=== PATIENT | female | born 1985 | race Caucasian/White ===

== ENCOUNTER 2016-12-01 07:07 | Emergency (ER) | payer BC, OTHER ==
[~2016-12-01] VITALS: Ht 165.1 cm; Wt 63.5 kg
[2016-12-01] MEDS ORDERED: ALPR1TAB2 PO (07:22)
[2016-12-01] MEDS ORDERED: GABA-532 PO (07:22)
[2016-12-01] MEDS ORDERED: CITA20TA19 PO (07:22)
[2016-12-01] MEDS ORDERED: QUET50TA PO (07:22)
--- NOTE | 2016-12-01 07:29 | NUR ---
DR THORNTON AT THE [facility] FOR EVAL AND EXAM.
[2016-12-01 08:02] LABS: CREATININE 0.6 mg/dL (0.6-1.3); EOSINOPHILS # (AUTO) 0.1 K/uL (0.0-0.7); MONOCYTES # (AUTO) 0.4 K/UL (0.1-1.30); POTASSIUM 4.3 mmol/L (3.5-5.1)
[2016-12-01 08:05] LABS: BASOPHILS % (AUTO) 0.4 % (0.0-2.0); EOSINOPHILS % (AUTO) 2.2 % (0.0-7.0); HEMATOCRIT 33.9 % (37-47); HEMOGLOBIN 11.5 G/DL (12.0-16.0); LYMPHOCYTES % (AUTO) 42.4 % (20.5-51.5); MEAN CORPUSCULAR HEMOGLOBIN 27.7 UUG (27.0-31.0); MEAN CORPUSCULAR HGB CONC 34 g/dL (32.0-37.0); MEAN CORPUSCULAR VOLUME 81.6 FL (81.0-99.0); MONOCYTES % (AUTO) 7.9 % (0.0-11.0); NEUTROPHILS # (AUTO) 2.2 K/UL (1.8-8.9); NEUTROPHILS % (AUTO) 47.1 % (38.5-71.5); PLATELET COUNT (AUTO) 218 K/UL (150-450); RED BLOOD CELL COUNT(AUTO) 4.15 MIL/UL (4.2-5.4); WHITE BLOOD COUNT (AUTO) 4.7 K/UL (4.0-11.2)
--- NOTE | 2016-12-01 08:39 | NUR ---
Patient discharged to home in stable conditon. Written and verbal after care instructions given. Patient verbalizes understanding of instructions.
[2016-12-01 08:40] VITALS: BP 102/61
== END 2016-12-01 08:41 | disposition home or self-care (01) ==
LOC: ER 07:10
DX: R07.9 Chest pain, unspecified (principal)
CPT/HCPCS: 36415; 70030-TC; 71010; 85025; 85730; 93005; A4663

== ENCOUNTER 2018-08-05 19:12 | Emergency (ER) | payer MEDICAID, OTHER ==
[~2018-08-05 19:12] MED LIST: ALPR1TAB2 PO; CITA20TA19 PO; GABA-532 PO; QUET50TA PO
== END 2018-08-05 19:40 | disposition left against medical advice (07) ==
LOC: ER 19:34
DX: Z53.21 Procedure and treatment not carried out due to patient leaving prior to being seen by health care provider (principal)

== ENCOUNTER 2018-08-06 16:45 | Emergency (ER) | payer MEDICAID, OTHER ==
[~2018-08-06] VITALS: Ht 165.1 cm; Wt 68.0 kg
[2018-08-06] MEDS ORDERED: ONDANSETRON ODT 4 MG TAB.RAPDIS ONE (17:09)
[2018-08-06] MEDS ORDERED: ONDANSETRON ODT 4 MG TAB.RAPDIS SL ONE (17:15)
[2018-08-06] MEDS ORDERED: ONDANSETRON HCL 4 MG TABLET PO ONE (17:15)
--- NOTE | 2018-08-06 17:22 | NUR ---
Patient discharged to home in stable conditon. Written and verbal after care instructions given. Patient verbalizes understanding of instructions.
== END 2018-08-06 17:10 | disposition home or self-care (01) ==
LOC: ER 16:45
DX: R11.2 Nausea with vomiting, unspecified (principal); R51 Headache; Z79.899 Other long term (current) drug therapy
CPT/HCPCS: A4663; Q0162